=== PATIENT | female | born 1995 | race Asian ===

== ENCOUNTER 2019-10-08 10:47 | Outpatient (CLI) | payer OTHER ==
[2019-10-08 13:05] LABS: CHLORIDE 108 mmol/L (98-107)
[2019-10-08 13:18] LABS: ALANINE AMINOTRANSFERASE 21 U/L (12-78); ALBUMIN 4.1 g/dL (3.4-5.0); ALKALINE PHOSPHATASE 54 U/L (45-117); ANION GAP 8 mmol/L (5-15); BILIRUBIN,TOTAL 0.6 mg/dL (0.2-1.0); CALCIUM 9.2 mg/dL (8.5-10.1); CHOLESTEROL, TOTAL 218 mg/dL (140-239); CREATININE 0.81 mg/dL (0.55-1.02); TOTAL PROTEIN 8.1 g/dL (6.4-8.2); TRIGLYCERIDES 54 mg/dL (50-200)
== END 2019-10-08 23:59 | disposition home or self-care (01) ==
LOC: CFH 10:47
PROVIDERS: ATTEND Family Medicine
DX: Z51.81 Encounter for therapeutic drug level monitoring (principal); L70.0 Acne vulgaris
CPT/HCPCS: 36415; 80053; 82465; 84478; 84703

== ENCOUNTER 2020-06-04 19:25 | Emergency (ER) | payer OTHER ==
[~2020-06-04] VITALS: Ht 165.1 cm; Wt 66.9 kg
[2020-06-04 19:28] VITALS: BP 126/60
--- NOTE | 2020-06-04 19:55 | NUR ---
PT COMES IN C/O SORE THROAT X2 DAYS. PT STATES SHE WAS COVID + 05/15/20 AND RELEASED FOR WORK 05/25. PT STATES SHE WAS COVID + IN FEBRUARY. PT STATES HX OF STREP THROAT AND STATES "THIS FEELS SIMILAR". MONITORS CONNECTED. WARM BLANKETS PROVIDED. CALL LIGHT W/IN REACH
--- NOTE | 2020-06-04 19:55 | NUR ---
PROVIDER AT BEDSIDE FOR ASSESSMENT
[2020-06-04] MEDS ORDERED: DEXAMETHASONE 4 MG TABLET PO ONE (20:00)
[2020-06-04] MEDS ORDERED: DEXAMETHASONE 4 MG TABLET ONE (20:23)
[2020-06-04] MEDS ORDERED: ACETAMINOPHEN 325 MG TABLET ONE (21:07)
--- NOTE | 2020-06-04 21:18 | NUR ---
PT AMBULATED TO DISCHARGE WITH STEADY GAIT. PT ENCOURAGED TO FOLLOWUP DISCUSSED. PT EDUCATED TO RETURN TO THE ED WITH WORSENING SYMPTOMS. RX GIVEN TO PT
[2020-06-04] MEDS ORDERED: ACETAMINOPHEN 325 MG TABLET PO ONE (21:30)
== END 2020-06-04 21:20 | disposition home or self-care (01) ==
LOC: ED 21:00
DX: J02.0 Streptococcal pharyngitis (principal)
CPT/HCPCS: 36415; 86308; 87880; 99283

== ENCOUNTER 2021-01-31 02:25 | Emergency (ER) | payer OTHER ==
[~2021-01-31] VITALS: Ht 165.1 cm; Wt 62.8 kg
--- NOTE | 2021-01-31 03:08 | NUR ---
PATIENT AMBULATED TO ROOM. UNABLE TO COMPLETE ASSESSMENT DUE TO PROVIDER IN ROOM THEN THE PATIENT WAS TAKEN TO ULTRASOUND. ASSESSMENT WILL BE COMPLETED UPON PT RETURN TO ROOM
--- NOTE | 2021-01-31 03:22 | NUR ---
PATIENT RETURN FROM ULTRASOUND. PATIENT REPORTS SEVERE RLQ PAIN DURING PERIOD, PAIN/BURNING DURING SEX AND URINATION. PATIENT REPORTS SEXUALLY ACTIVE WITH ONE PARTNER.
[2021-01-31 03:25] LABS: MICROSCOPIC NOT IND
[2021-01-31 03:48] LABS: BASOPHILS % (AUTO) 1 % (0-1); EOSINOPHILS % (AUTO) 2 % (1-7); LYMPHOCYTES % (AUTO) 43 % (22-44); MEAN CORPUSCULAR HEMOGLOBIN 30.5 pg (27.0-34.8); MEAN CORPUSCULAR HGB CONC 34.2 g/dL (32.4-35.8); MEAN PLATELET VOLUME 7.1 fL (7.4-10.4); MONOCYTES % (AUTO) 7 % (2-9); NEUTROPHILS % (AUTO) 48 % (42-75); PLATELET COUNT 318 x10^3/uL (130-400); RED BLOOD COUNT 4.36 x10^6/uL (3.82-5.3)
[2021-01-31 03:59] LABS: ALBUMIN 3.7 g/dL (3.4-5.0); ANION GAP 7 mmol/L (5-15); CALCIUM 8.3 mg/dL (8.5-10.1); CHLORIDE 110 mmol/L (98-107)
[2021-01-31 04:39] VITALS: BP 122/71
--- NOTE | 2021-01-31 05:22 | NUR ---
Patient given discharge instructions and they have confirmed that they understand the instructions. Patient ambulatory with steady gait. NAD, all questions answered appropriately, denies additional needs at this time. No personal belongings left in room after discharge.
== END 2021-01-31 05:24 | disposition home or self-care (01) ==
LOC: ED 05:15
DX: R10.31 Right lower quadrant pain (principal); N92.0 Excessive and frequent menstruation with regular cycle
CPT/HCPCS: 36415; 76830; 80048; 81003; 82040; 84703; 85025; 99284